=== PATIENT | male | born 1955 | race Caucasian/White ===

== ENCOUNTER 2022-02-16 01:10 | Emergency (ER) | payer MEDICARE ==
[~2022-02-16] VITALS: Ht 182.9 cm; Wt 88.6 kg
[2022-02-16] MEDS ORDERED: SIMV20TA22 PO (01:23)
[2022-02-16 01:51] LABS: BASO % 0.3 % (0.0-1.0); EOS # 0.1 10^3/uL (0.0-0.5); EOS % 1.3 % (0.0-3.0); HEMATOCRIT 43.1 % (42.0-52.0); HEMOGLOBIN 14.4 g/dl (13.5-17.5); LYMPH # 1.5 10^3/uL (1.5-5.0); LYMPH % 13.5 % (24.0-44.0); MEAN CORPUSCULAR HEMOGLOBIN 29.9 pg (27.0-33.0); MEAN CORPUSCULAR HGB CONC 33.4 g/dl (32.0-36.5); MEAN CORPUSCULAR VOLUME 89.4 fl (80.0-96.0); MONO # 1.1 10^3/uL (0.0-0.8); MONO % 9.8 % (2.0-8.0); NEUTROPHILS # 8.2 10^3/uL (1.5-8.5); NEUTROPHILS % 74.7 % (36.0-66.0); PLATELET COUNT, AUTOMATED 257 10^3/uL (150-450); RED BLOOD COUNT 4.82 10^6/uL (4.30-6.10)
[2022-02-16 02:24] LABS: ALBUMIN 3.9 GM/DL (3.2-5.2); ALT/SGPT 33 U/L (12-78); BILIRUBIN,DIRECT 0.2 MG/DL (0.0-0.2); BILIRUBIN,TOTAL 0.7 MG/DL (0.2-1.0); BLOOD UREA NITROGEN 16 MG/DL (7-18); CALCIUM LEVEL 9.1 MG/DL (8.8-10.2); CARBON DIOXIDE LEVEL 25 MEQ/L (21-32); CHLORIDE LEVEL 109 MEQ/L (98-107); GLOMERULAR FILTRATION RATE > 60.0 (>49); GLUCOSE, FASTING 97 MG/DL (70-100); LIPASE 110 U/L (73-393); POTASSIUM SERUM 4.4 MEQ/L (3.5-5.1); SODIUM LEVEL 141 MEQ/L (136-145); TOTAL PROTEIN 6.9 GM/DL (6.4-8.2)
[2022-02-16] MEDS ORDERED: NS 1,000 ML IV ONE (02:25)
[2022-02-16] MEDS ORDERED: KETOROLAC 30 MG/ML 1ML VIAL IV ONE (02:25)
[2022-02-16 03:41] VITALS: BP 118/68
== END 2022-02-16 03:48 | disposition home or self-care (01) ==
LOC: M ED 01:10
DX: R10.9 Unspecified abdominal pain (principal); K30 Functional dyspepsia; E78.5 Hyperlipidemia, unspecified
CPT/HCPCS: 80048; 80076; 83605; 83690; 85025; 93041; 96361; 96374; 99284; J1885